=== PATIENT | female | born 1980 | race Two or more races ===

== ENCOUNTER 2016-06-23 03:54 | Emergency (ER) | payer OTHER ==
[2016-06-23 04:04] LABS: INFLUENZA A NEG (NEG)
[2016-06-23 04:05] LABS: INFLUENZA B POS (NEG)
== END 2016-06-23 05:22 | disposition home or self-care (01) ==
LOC: CED 03:54
PROVIDERS: Nurse Practitioner Family
DX: J10.1 Influenza due to other identified influenza virus with other respiratory manifestations (principal)
CPT/HCPCS: 87651; 87804; 99282